=== PATIENT | male | born 1980 | race African-American/Black ===

== ENCOUNTER 2017-01-30 23:55 | Emergency (ER) | payer MEDICAID ==
[~2017-01-30] VITALS: Ht 175.3 cm; Wt 74.0 kg
[2017-01-31] MEDS ORDERED: IBUPROFEN 600MG TABLET PO ONE (00:15)
[2017-01-31 02:10] VITALS: BP 101/68
== END 2017-01-31 06:23 | disposition home or self-care (01) ==
LOC: ER 01-31 00:34
DX: M25.512 Pain in left shoulder (principal); R07.9 Chest pain, unspecified; I10 Essential (primary) hypertension; Z98.890 Other specified postprocedural states
CPT/HCPCS: 71010; 73030; 73140; 93005; 99284; Z7610

== ENCOUNTER 2017-01-31 06:35 | Emergency (ER) | payer MEDICAID ==
[~2017-01-31] VITALS: Ht 167.6 cm; Wt 75.0 kg
[2017-01-31 09:10] VITALS: BP 2/65
== END 2017-01-31 09:11 | disposition home or self-care (01) ==
LOC: ER 06:36
DX: B08.1 Molluscum contagiosum (principal); F17.200 Nicotine dependence, unspecified, uncomplicated; Z98.890 Other specified postprocedural states
CPT/HCPCS: 99282

== ENCOUNTER 2017-02-04 13:04 | Emergency (ER) | payer MEDICAID ==
[~2017-02-04] VITALS: Ht 172.7 cm; Wt 75.0 kg
[2017-02-04] MEDS ORDERED: SODIUM CHLORIDE 0.9% 1,000 ML IV ONE (14:15)
[2017-02-04] MEDS ORDERED: ACETAMINOPHEN 325MG TABLET PO ONE (14:30)
[2017-02-04] MEDS ORDERED: KETOROLAC 30MG/ML VIAL IV ONE (15:15)
[2017-02-04 15:29] LABS: BASOPHILS % 0.4 % (0.0-2.0); EOSINOPHILS % 1.8 % (0.0-5.0); HEMATOCRIT. 31.9 % (42.0-52.0); HEMOGLOBIN. 10.9 g/dL (14.0-18.0); MEAN CORPUSCULAR HEMOGLOBIN 29.5 pg (28.0-32.0); MEAN CORPUSCULAR VOLUME 86.7 fL (80.0-94.0); MEAN PLATELET VOLUME 7.2 fl (7.4-10.4); MONOCYTES % 11.2 % (2.0-8.0); NEUTROPHILS % 61.6 % (40.0-76.0); PLATELET 425 x1000/uL (130-400); RED BLOOD CELL COUNT 3.68 mill/uL (4.7-6.1); RED CELL DISTRIBUTION WIDTH 14.6 % (11.6-14.6)
[2017-02-04 15:31] LABS: CHLORIDE 106 mEq/L (98-107)
[2017-02-04 15:33] LABS: INR 1.1; PROTHROMBIN TIME 11.6 sec
[2017-02-04 15:40] LABS: CARBON DIOXIDE 25 mEq/L (21-32)
[2017-02-04 16:23] LABS: CLARITY URINE CLEAR (CLEAR); COLOR URINE YELLOW (YELLOW); GLUCOSE URINE NEGATIVE (NEGATIVE); KETONES URINE NEGATIVE (NEGATIVE); LEUKOCYTE ESTERASE URINE NEGATIVE (NEGATIVE); NITRITE URINE NEGATIVE (NEGATIVE); OCCULT BLOOD URINE NEGATIVE (NEGATIVE); PH URINE 5.5 (4.5-8.0); PROTEIN URINE NEGATIVE (NEGATIVE); SPECIFIC GRAVITY URINE 1.015 (1.005-1.030); UROBILINOGEN URINE 0.2 E.U./dL (0.2-1.0)
[2017-02-04 16:38] VITALS: BP 112/68
== END 2017-02-04 16:41 | disposition home or self-care (01) ==
LOC: ER 13:37 → CANBEDREQ 17:29
DX: R53.1 Weakness (principal); R13.10 Dysphagia, unspecified; R51 Headache; B08.1 Molluscum contagiosum
CPT/HCPCS: 36415; 70450; 71010; 80053; 81003; 83605; 83690; 85025; 85610; 87040; 93005; 96361; 96374; 99285; J1885; J7030; Z7610